=== PATIENT | female | born 1965 | race Caucasian/White ===

== ENCOUNTER 2017-01-02 10:36 | Day surgery (SDC) | payer OTHER ==
[2017-01-01 12:39] VITALS: BMI 23.4
[2017-01-02] MEDS ORDERED: PROPOFOL 20 ML ONE ×2 (12:17)
[2017-01-02 13:13] VITALS: TEMP 98.2
[2017-01-02 14:17] VITALS: BP 122/72; PULSE 66
== END 2017-01-02 13:50 | disposition home or self-care (01) ==
LOC: FASU-ENDO 10:36
PROVIDERS: ATTEND Internal Medicine Gastroenterology
PROC: 0DJD8ZZ Inspection of Lower Intestinal Tract, Via Natural or Artificial Opening Endoscopic (ICD-10-PCS; principal; 2017-01-02 12:29)
DX: Z12.11 Encounter for screening for malignant neoplasm of colon (principal); K64.2 Third degree hemorrhoids
CPT/HCPCS: 84703